=== PATIENT | female | born 1965 | race Caucasian/White ===

== ENCOUNTER 2016-08-09 11:57 | Emergency (ER) | payer MEDICARE, OTHER ==
[2016-08-15] MEDS ORDERED: ZOFRAN4 MG PO (09:19)
[2016-08-15] MEDS ORDERED: NEURONTIN400 MG PO (09:20)
[2016-08-15] MEDS ORDERED: NOVOLOG FL100 UNIT/1 SQ ×2 (09:20)
[2016-08-15] MEDS ORDERED: NEXIUM40 MG PO (09:20)
[2016-08-15] MEDS ORDERED: CRESTOR40 MG PO (09:20)
[2016-08-15] MEDS ORDERED: AMLOD-VALSA-HC1 EAC2 PO (09:21)
[2016-08-15] MEDS ORDERED: CYMBALTA30 MG PO (09:21)
[2016-08-15] MEDS ORDERED: GLUCOPHAGE1000 MG PO (09:22)
[2016-08-15] MEDS ORDERED: CINNAMON500 MG PO (09:22)
[2016-08-15] MEDS ORDERED: FISH OIL 1,0001 EAC4 PO (09:22)
[2016-08-15] MEDS ORDERED: TRAMADOL HCL50 MG PO (09:23)
[2016-08-15] MEDS ORDERED: ACETAMINOPHEN325 MG PO (09:23)
[2016-08-15] MEDS ORDERED: PROMETHEGAN12.5 MG RC (09:24)
[2016-08-15] MEDS ORDERED: AUGMENTIN 875-1 EACH PO (09:24)
== END 2016-08-09 14:38 | disposition home or self-care (01) ==
LOC: ER 11:57
DX: N39.0 Urinary tract infection, site not specified (principal); K04.7 Periapical abscess without sinus; E10.65 Type 1 diabetes mellitus with hyperglycemia; R05 Cough; E78.5 Hyperlipidemia, unspecified; I10 Essential (primary) hypertension; K21.9 Gastro-esophageal reflux disease without esophagitis; F32.9 Major depressive disorder, single episode, unspecified; Z90.710 Acquired absence of both cervix and uterus; Z90.49 Acquired absence of other specified parts of digestive tract; Z98.51 Tubal ligation status; Z79.899 Other long term (current) drug therapy
CPT/HCPCS: 36415; 96361; 96365; 96375; J0696

== ENCOUNTER 2016-08-12 01:17 | Observation (INO) | payer MEDICARE, OTHER ==
[2016-08-15] MEDS ORDERED: ZOFRAN4 MG PO (09:19)
[2016-08-15] MEDS ORDERED: NEXIUM40 MG PO (09:20)
[2016-08-15] MEDS ORDERED: NEURONTIN400 MG PO (09:20)
[2016-08-15] MEDS ORDERED: CRESTOR40 MG PO (09:20)
[2016-08-15] MEDS ORDERED: NOVOLOG FL100 UNIT/1 SQ ×2 (09:20)
[2016-08-15] MEDS ORDERED: CYMBALTA30 MG PO (09:21)
[2016-08-15] MEDS ORDERED: AMLOD-VALSA-HC1 EAC2 PO (09:21)
[2016-08-15] MEDS ORDERED: FISH OIL 1,0001 EAC4 PO (09:22)
[2016-08-15] MEDS ORDERED: GLUCOPHAGE1000 MG PO (09:22)
[2016-08-15] MEDS ORDERED: CINNAMON500 MG PO (09:22)
[2016-08-15] MEDS ORDERED: TRAMADOL HCL50 MG PO (09:23)
[2016-08-15] MEDS ORDERED: ACETAMINOPHEN325 MG PO (09:23)
[2016-08-15] MEDS ORDERED: AUGMENTIN 875-1 EACH PO (09:24)
[2016-08-15] MEDS ORDERED: PROMETHEGAN12.5 MG RC (09:24)
== END 2016-08-14 13:05 | disposition home or self-care (01) ==
LOC: ER 01:17 → MED 03:36
PROVIDERS: ADMIT Internal Medicine
DX: K04.7 Periapical abscess without sinus (principal); L03.211 Cellulitis of face; E86.0 Dehydration; E11.9 Type 2 diabetes mellitus without complications; I10 Essential (primary) hypertension; E87.6 Hypokalemia; K21.9 Gastro-esophageal reflux disease without esophagitis; G89.29 Other chronic pain; E78.5 Hyperlipidemia, unspecified; E83.42 Hypomagnesemia; Z79.899 Other long term (current) drug therapy; Z90.49 Acquired absence of other specified parts of digestive tract; Z90.710 Acquired absence of both cervix and uterus; Z23 Encounter for immunization
CPT/HCPCS: 36415; 96361; 96365; 96366; 96367; 96372; 96375; 96376; G0009; G0378; J0295; J0696; J1650

== ENCOUNTER 2016-08-12 01:17 | Emergency (ER) | payer MEDICARE, OTHER ==
[2016-08-15] MEDS ORDERED: ZOFRAN4 MG PO (09:19)
[2016-08-15] MEDS ORDERED: NEURONTIN400 MG PO (09:20)
[2016-08-15] MEDS ORDERED: CRESTOR40 MG PO (09:20)
[2016-08-15] MEDS ORDERED: NOVOLOG FL100 UNIT/1 SQ ×2 (09:20)
[2016-08-15] MEDS ORDERED: NEXIUM40 MG PO (09:20)
[2016-08-15] MEDS ORDERED: CYMBALTA30 MG PO (09:21)
[2016-08-15] MEDS ORDERED: AMLOD-VALSA-HC1 EAC2 PO (09:21)
[2016-08-15] MEDS ORDERED: FISH OIL 1,0001 EAC4 PO (09:22)
[2016-08-15] MEDS ORDERED: GLUCOPHAGE1000 MG PO (09:22)
[2016-08-15] MEDS ORDERED: CINNAMON500 MG PO (09:22)
[2016-08-15] MEDS ORDERED: TRAMADOL HCL50 MG PO (09:23)
[2016-08-15] MEDS ORDERED: ACETAMINOPHEN325 MG PO (09:23)
[2016-08-15] MEDS ORDERED: AUGMENTIN 875-1 EACH PO (09:24)
[2016-08-15] MEDS ORDERED: PROMETHEGAN12.5 MG RC (09:24)
== END 2016-08-12 03:35 | disposition critical access hospital (66) ==
LOC: ER 01:17
DX: R11.2 Nausea with vomiting, unspecified (principal); K04.7 Periapical abscess without sinus; E87.6 Hypokalemia; F32.9 Major depressive disorder, single episode, unspecified; I10 Essential (primary) hypertension; E11.9 Type 2 diabetes mellitus without complications; E78.5 Hyperlipidemia, unspecified; Z90.49 Acquired absence of other specified parts of digestive tract; Z90.710 Acquired absence of both cervix and uterus; Z98.51 Tubal ligation status; Z79.4 Long term (current) use of insulin; Z79.899 Other long term (current) drug therapy
CPT/HCPCS: 96365; 96367; 96375; J0295